=== PATIENT | female | born 1990 | race Caucasian/White ===

== ENCOUNTER 2022-04-19 14:21 | Emergency (ER) | payer OTHER, SELFPAY ==
[2022-04-19] VITALS (30 sets, daily range): BP systolic 101–130; BP diastolic 55–98; PULSE 104–135; RESP 11–25; TEMP 36.8; O2SAT 97–100
--- NOTE | 2022-04-19 14:38 | ED.NAVMDI ---
HPI - Nausea/Vomiting/Diarrhea General Chief complaint: Nausea/Vomiting/Diarrhea Stated complaint: Vomiting, 14 weeks preg Time Seen by Provider: 04/19/22 14:38 History of Present Illness HPI Narrative: Patient is a 31 yo female currently 14 weeks , presenting to the emergency department for evaluation of lower back pain, nausea, vomiting. Patient states that she has felt unwell over the past 48 hours. Patient states that she was diagnosed with urinary tract infection with outpatient urinalysis testing at her [employer] office, started on oral Macrobid. She denies dysuria, hematuria, frequency. Patient has been compliant with her medication until this afternoon when she began to experience nausea and vomiting. Patient denies taking any medication for fever. States that she does not think she has had a fever but mother at bedside reports that she feels the patient felt warm. Patient reports aching pain in her bilateral lower back. Denies history of kidney stones. Patient denies any movement at this point. She denies vaginal bleeding, loss of fluids, pelvic pain or vaginal discharge. Patient reports she had a history of mild nausea and early but that had since resolved. Related Data Home Medications Medication Instructions Recorded Confirmed levetiracetam 500 mg 500 mg PO QHS 04/19/22 04/19/22 tablet,extended release 24 hr (Keppra XR) levothyroxine 25 mcg tablet 25 tablet PO DAILY 04/19/22 04/19/22 Allergies Allergy/AdvReac Type Severity Reaction Status Date / Time No Known Allergies Allergy Verified 04/19/22 15:09 Review of Systems Review of Systems: CONSTITUTIONAL: Reports fever and chills and EYES: Denies visual changes, redness, or discharge. ENT: Denies rhinorrhea, congestion, sore throat, or otalgia. CARDIOVASCULAR: Denies chest pain, palpitations, or edema. RESPIRATORY: Denies cough or dyspnea. GASTROINTESTINAL: Denies abdominal pain, reports nausea and vomiting GENITOURINARY: Denies dysuria or hematuria. Reports flank pain SKIN: Denies rash or itching. MUSCULOSKELETAL: Denies back pain, joint pain, or myalgia. NEUROLOGIC: Denies headache, numbness, or weakness. [facility] Social History Social History (Updated 04/19/22 @ 15:33 by Smiley Ratliff MD) Smoking status: Never smoker Alcohol intake: never Substance use: never Occupation/Education: occupation Gender identity (if verbalized by the patient): Female Exam Narrative: GENERAL: Awake, alert, conversant HEAD: Normocephalic, atraumatic. EYES: PERRLA and EOMI. ENT: Nares clear, no rhinorrhea or epistaxis. Mucous membranes moist. NECK: Supple. CHEST: No respiratory distress, breathing even and non labored HEART: Tachycardic rate, sinus rhythm ABDOMEN:Non distended, non tender, no pelvic tenderness, bilateral flank tenderness EXTREMITIES: Normal range of motion. No edema. SKIN: Warm, dry, no rash. NEURO:No focal deficits. Alert and oriented x3 Course Vital Signs Vital signs: Vital Signs Temperature 36.8 C 04/19/22 14:30 Pulse Rate 135 H 04/19/22 14:30 Respiratory Rate 16 04/19/22 14:30 Blood Pressure 114/63 04/19/22 14:30 Pulse Oximetry 97 04/19/22 14:30 Oxygen Delivery Room Air 04/19/22 14:30 Temperature 36.8 C 04/19/22 14:30 Pulse Rate 111 H 04/19/22 18:16 Respiratory Rate 12 04/19/22 18:16 Blood Pressure 122/79 04/19/22 18:15 Pulse Oximetry 100 04/19/22 16:16 Oxygen Delivery Room Air 04/19/22 14:30 MDM - Nausea/Vomiting/Diarrhea MDM Narrative Medical decision making narrative: Patient presenting in early second trimester for evaluation of nausea, vomiting, flank pain. Patient is tachycardic at the time of assessment, afebrile, normotensive. Patient is denying any chest pain, cough or shortness of breath. Patient is not vaccinated for COVID, no known history of COVID infection. Laboratory results show no leukocytosis, no lactic acidosis.
[2022-04-19] MEDS: METOCLOPRAMIDE HCL INJ 10 MG/2 ML VIAL IV PUSH (15:09)
[2022-04-19] MEDS: SODIUM CHLORIDE 0.9% IV 2,000 ML 999 ML IV CONT (15:10)
[2022-04-19 15:12] LABS: Basophils Percent Auto 0.1 % (0.2-1.2); Eosinophils Percent Auto 0.1 % (0-4.4); Hematocrit 34.8 % (37.0-47.0); Hemoglobin 11.8 g/dL (12.0-15.0); Immature Granulocyte Percent A 1.1 % (0-0.5); Lymphocytes Percent Auto 2.1 % (18.3-44.2); Mean Corpuscular HGB Conc 33.9 g/dl (32-36); Mean Corpuscular Volume 88.5 fl (80-100); Mean Platelet Volume 8.9 fl (7.4-10.4); Monocytes Percent Auto 10.5 % (2.6-8.5); Neutrophils Absolute Auto 8.2 K/mm3 (1.3-6.7); Neutrophils Percent Auto 86.1 % (45.5-73.1); Platelet Count Result 222 k/mm3 (150-375); Red Blood Count 3.93 M/mm3 (4.2-5.4); Red Cell Distribution Width 12.1 % (11.5-14.5); White Blood Count 9.5 K/mm3 (4.5-10.0)
[2022-04-19 15:21] LABS: Alanine Aminotransferase 63 U/L (6-35); Albumin Level 3.9 g/dL (3.5-5.1); Alkaline Phosphatase 44 U/L (38-126); Anion Gap 6 mmol/L (8-16); Aspartate Amino Transferase 63 U/L (14-36); Bilirubin,Total < 0.1 mg/dL (0.2-1.3); Blood Urea Nitrogen 10 mg/dL (7-17); Calcium 8.7 mg/dL (8.4-10.2); Carbon Dioxide 22 mmol/L (22-30); Chloride 106 mmol/L (98-107); Estimated CRCL calculation 108 ml/min; Estimated Glomerular Filt Rate > 60; Glucose 99 mg/dL (65-110); Lipase 32 U/L (23-300); Potassium 3.8 mmol/L (3.4-5.0); Sodium 134 mmol/L (137-145)
[2022-04-19 15:50] LABS: Appearance Urine Slightly Cloudy (Clear); Bilirubin Urine Negative (Negative); Blood Urine Negative (Negative); Color Urine Yellow (Yellow); Glucose Urine UA Negative (Negative); Ketones Urine 3+ mg/dL (Negative); Leukocyte Esterase Ur 1+ LEU/UL (Negative); Nitrate Urine Negative (Negative); Protein Urine 1+ mg/dL (Negative); Urobilinogen Urine 0.2 mg/dL (<2.0)
[2022-04-19 16:03] LABS: Bacteria Urine Trace /hpf; Mucus Urine Rare /lpf; Squamous Epithelial Cell Urine Moderate /hpf (Few)
[2022-04-19 16:07] LABS: Add Urine Microscopic? YES
[2022-04-19 16:54] LABS: Lactic Acid Reflex 0.9 mmol/L (0.7-2.0)
[2022-04-19 17:19] LABS: SARS-CoV-2 RNA PCR Positive
[2022-04-19] MEDS: SODIUM CHLORIDE 0.9% IV 1,000 ML 999 ML IV CONT (17:41)
--- NOTE | 2022-04-19 17:56 | ECG_ITS ---
Measurements Intervals [place] Rate: 112 P: 82 WI: 162 QRS: 60 QRSD: 72 T: 8 QT: 328 QTc: 449 Interpretive Statements SINUS TACHYCARDIA LOW QRS VOLTAGE IN PRECORDIAL LEADS [QRS DEFLECTION < 1.0 mV IN CHEST LEADS] ABNORMAL RHYTHM ECG NO PREVIOUS ECG AVAILABLE FOR COMPARISON Electronically Signed On 04-21-2022 16:01:16 CDT by Perry Patton M.D.
== END 2022-04-19 19:47 | disposition home or self-care (01) ==
PROVIDERS: Emergency Provider Emergency Medicine
DX: U07.1 COVID-19 (principal); E86.0 Dehydration; R82.998 Other abnormal findings in urine
CPT/HCPCS: 36415; 80053; 81001; 83605; 83690; 85025; 87040; 87086; 93005; 96361; 96365; 96375; 99284; C9803; J0131; J0696; J2765; J7030; U0003; U0005